=== PATIENT | female | born 1995 | race Caucasian/White ===

== ENCOUNTER 2024-07-21 08:25 | Outpatient (CLI) | payer OTHER, SELFPAY ==
[2024-07-21 12:03] LABS: Chlamydia DNA Amplified* NOT DETECTED (No Detected); GC DNA Amplified* NOT DETECTED (No Detected)
== END 2024-07-21 08:26 | disposition home or self-care (01) ==
PROVIDERS: Visit Provider Midwife
DX: Z34.91 Encounter for supervision of normal pregnancy, unspecified, first trimester (principal); Z3A.08 8 weeks gestation of pregnancy
CPT/HCPCS: 76817; 86592; 86703; 86704; 86706; 86762; 86787; 86803; 86850; 86900; 86901; 87086; 87340; 87491; 87591

== ENCOUNTER 2024-10-13 08:14 | Outpatient (CLI) | payer OTHER, SELFPAY ==
--- NOTE | 2024-10-13 08:15 | CRLHL7_ITS ---
For Patients: As a result of the Century Cures Act, medical imaging exams and procedure reports are released immediately into your electronic medical record. You may view this report before your referring provider. If you have questions, please contact your health care provider. INDICATION: Evaluate anatomy. COMPARISON: 07/21/2024 TECHNIQUE: Real time dickinson scale imaging of the fetus was performed as well as color Doppler analysis of the umbilical vessels. FINDINGS: Sonographic imaging demonstrates a single living intrauterine gestation. Fetus demonstrates a regular cardiac rate of 133 beats per minute. Fetus has a breech position. The placenta lies anteriorly without evidence of placenta previa. Edge of the placenta 5.1 cm from the internal cervical os. Amniotic fluid volume appears normal. Single deepest vertical pocket: 4.6 cm. The cervix is closed and measures 3.2 cm in length. The composite ultrasound gestational age is calculated at 20 weeks 3 days with an estimated sonographic due date of 02/27/2025. The estimated weight is 332 grams which lies at the 9th %. The following biometric measurements were obtained: Biparietal diameter: 4.7 cm/20 weeks 1 day 16th% Head circumference: 17.4 cm/19 weeks 6 days 6th% Abdominal circumference: 15.2 cm/20 weeks 3 days 24th% Femur length: 3.2 cm/19 weeks 6 days 9th% The HC/AC ratio measures: 1.15 range (1.07-1.25) On anatomic survey, there is a normal appearance of the cerebral ventricles, cavum septi pellucidi, cisterna magna and cerebellum. The nose, lips, and facial profile appear normal. The cervical, thoracic and lumbar spine are not well visualized. There is a normal four-chamber heart view and the left and right ventricular outflow tracts appear normal. The diaphragm and stomach appear normal. The kidneys and bladder also appear normal. There is a normal three-vessel cord and cord insertion site. The four extremities are not well visualized. IMPRESSION: Concordance of clinical and sonographic dating. Incomplete visualization of the spine, hands and feet. Remainder of the anatomic survey normal. Short-term follow-up recommended. Estimated weight 9th percentile. SD ratio 3.0. Dictated by Doron Ernst MD @ 10/13/2024 7:28:04 PM (Electronically Signed)
== END 2024-10-13 08:15 | disposition home or self-care (01) ==
LOC: US 08:14
PROVIDERS: Visit Provider Midwife
DX: Z34.92 Encounter for supervision of normal pregnancy, unspecified, second trimester (principal); O35.GXX0 Maternal care for other (suspected) fetal abnormality and damage, fetal upper extremities anomalies, not applicable or unspecified; O35.FXX0 Maternal care for other (suspected) fetal abnormality and damage, fetal musculoskeletal anomalies of trunk, not applicable or unspecified; O35.HXX0 Maternal care for other (suspected) fetal abnormality and damage, fetal lower extremities anomalies, not applicable or unspecified; Z3A.20 20 weeks gestation of pregnancy
CPT/HCPCS: 76805; 76820

== ENCOUNTER 2024-11-10 09:13 | Outpatient (CLI) | payer OTHER, SELFPAY ==
--- NOTE | 2024-11-10 09:15 | CRLHL7_ITS ---
For Patients: As a result of the Century Cures Act, medical imaging exams and procedure reports are released immediately into your electronic medical record. You may view this report before your referring provider. If you have questions, please contact your health care provider. OB ULTRASOUND FOLLOWUP LIMITED, 11/10/2024 CLINICAL HISTORY: Followup for missing anatomy and growth measurements. COMPARISON: 10/13/2024. TECHNIQUE: Transabdominal OB ultrasound. Real time dickinson scale imaging of the fetus was performed. FINDINGS: LMP: 05/19/2024. ERICH by LMP: 02/23/2025. GA: 24 weeks 0 days. Gestation: Single. Cervix: Not visualized. Positioning: Vertex. Amniotic Fluid: 4.3 cm. Placenta: Technique: Transabdominal. Placenta Position: Anterior. Dopplers: Heart Rate: 142 cm. Biometry: BPD: 6.1 cm, 24 weeks 6 days. 36.1% HC: 22.5 cm, 24 weeks 4 days. 14.7% AC: 20.2 cm, 24 weeks 6 days. 36.2% FL: 4.5 cm, 24 weeks 5 days. 28.5% EFW: 734.0 grams. 1 lb 10 oz. Age by this US: 24 weeks 5 days. ERICH by this US: 02/25/2025. Percentile by ERICH: 30.5% IMPRESSION: 1. Sonographic gestational age 24 weeks 5 days and sonographic due date 02/25/2025. Good correlation with dates. Normal interval growth. 2. Estimated weight 31st percentile. Abdominal circumference 36th percentile. 3 spine, hands and feet are normal. Doron Ernst M.D. Diagnostic Radiologist [email or web address] Transcribed: 10:46 am DW/Dictated by: Doron Ernst MD @ 11/10/2024 10:17:00 AM (Electronically Signed)
== END 2024-11-10 09:14 | disposition home or self-care (01) ==
LOC: US 09:14
PROVIDERS: Visit Provider Midwife
DX: O35.9XX0 Maternal care for (suspected) fetal abnormality and damage, unspecified, not applicable or unspecified (principal); Z3A.24 24 weeks gestation of pregnancy
CPT/HCPCS: 76816

== ENCOUNTER 2024-12-08 09:11 | Outpatient (CLI) | payer OTHER, SELFPAY | END 2024-12-08 09:12 | disposition home or self-care (01) | PROVIDERS: Visit Provider Midwife | DX: Z34.03 Encounter for supervision of normal first pregnancy, third trimester (principal); Z3A.29 29 weeks gestation of pregnancy | CPT/HCPCS: 86592; 86850; J2791 ==

== ENCOUNTER 2024-12-22 07:45 | Outpatient (CLI) | payer OTHER, SELFPAY | END 2024-12-22 07:46 | disposition home or self-care (01) | LOC: NFLDREF 12-23 23:49 | PROVIDERS: Visit Provider Midwife | DX: Z34.93 Encounter for supervision of normal pregnancy, unspecified, third trimester (principal); R73.09 Other abnormal glucose; Z3A.31 31 weeks gestation of pregnancy | CPT/HCPCS: 82951; 82952 ==

== ENCOUNTER 2025-01-08 12:08 | Outpatient (CLI) | payer OTHER, SELFPAY ==
--- NOTE | 2025-01-08 12:15 | CRLHL7_ITS ---
For Patients: As a result of the Century Cures Act, medical imaging exams and procedure reports are released immediately into your electronic medical record. You may view this report before your referring provider. If you have questions, please contact your health care provider. OB ULTRASOUND FOLLOWUP GROWTH 01/08/2025 CLINICAL HISTORY: Gestational diabetes mellitus. COMPARISON: 11/10/2024, 10/09/2024, 07/21/2024. TECHNIQUE: Real time dickinson scale imaging of the fetus was performed transabdominal. FINDINGS: ERICH by LMP: 02/23/2025. GA: 33 weeks 3 days. CERVIX: Not visualized. POSITIONING: Vertex. AMNIOTIC FLUID: 4.5 cm SDP. PLACENTA POSITION: Anterior. DOPPLERS: Heart Rate: 137 bpm. BIOMETRY: BPD: 8.4 CM, 33 weeks 5 days. 55.7% HC: 30.2 cm, 33 weeks 4 days. 17.9% AC: 28.8 cm, 32 weeks 6 days. 33.3% FL: 6.2 cm, 32 weeks 0 days. 10.0% FL/AC Ratio: 21.5% BARRAZA/AC Ratio: 1.05. EFW: 2040 grams, 4 lb 8 oz. Age by this US: 33 weeks 0 days. ERICH by this US: 02/26/2025. Percentile by ERICH: 22.7% IMPRESSION: 1. Sonographic gestational age 33 weeks 0 days and sonographic due date 02/26/2025. Good correlation with dates and normal interval growth. 2. Estimated weight 23rd percentile. Abdominal circumference 33rd percentile. 3. The bowel appears mildly hyperechoic on the sine clip, although this could be artifactual. Short-term followup or MFM consult could be considered. Doron Ernst M.D. Diagnostic Radiologist [email or web address] Transcribed: 1:39 pm DW/Dictated by: Doron Ernst MD @ 01/08/2025 1:14:00 PM (Electronically Signed)
== END 2025-01-08 12:09 | disposition home or self-care (01) ==
LOC: US 12:08
PROVIDERS: Visit Provider Advanced Practice Midwife
DX: O24.419 Gestational diabetes mellitus in pregnancy, unspecified control (principal); Z3A.33 33 weeks gestation of pregnancy
CPT/HCPCS: 76816

== ENCOUNTER 2025-01-16 15:56 | Outpatient (CLI) | payer OTHER, SELFPAY ==
--- NOTE | 2025-01-16 16:00 | CRLHL7_ITS ---
For Patients: As a result of the Cures Act, medical imaging exams and procedure reports are released immediately into your electronic medical record. You may view this report before your referring provider. If you have questions, please contact your health care provider. OB ULTRASOUND LIMITED FOLLOW-UP ERICH by LMP: 02/23/2025. GA: 34 w, 4 d. Single. Comparison: 01/08/2025, 11/10/2024, 10/13/2024. INDICATION: Follow-up echogenic bowel finding on previous ultrasound. TECHNIQUE: Real time dickinson scale imaging of the fetus was performed. CERVIX: Not visualized. POSITIONING: Vertex. AMNIOTIC FLUID: 5.7 cm SDP (N: greater than 2 x 1 cm) PLACENTA: Technique: Transabdominal. PLACENTA POSITION: Anterior. DOPPLER: heart rate: 137 bpm. IMPRESSION: The echotexture of the bowel loops appears similar to the prior study. Normal bladder, stomach and kidneys. Doron Ernst M.D. Diagnostic Radiologist [email or web address] FRANCA/Dictated by: Doron Ernst MD @ 01/16/2025 7:00:00 PM (Electronically Signed)
== END 2025-01-16 15:57 | disposition home or self-care (01) ==
LOC: US 15:57
PROVIDERS: Visit Provider Advanced Practice Midwife
DX: Z34.93 Encounter for supervision of normal pregnancy, unspecified, third trimester (principal); Z3A.34 34 weeks gestation of pregnancy
CPT/HCPCS: 76816

== ENCOUNTER 2025-01-29 13:42 | Outpatient (CLI) | payer OTHER, SELFPAY ==
[2025-01-30 13:11] LABS: Strep B DNA Probe Negative (Negative)
[2025-01-30 13:12] LABS: Strep B Susceptibility Needed? No
== END 2025-01-29 13:43 | disposition home or self-care (01) ==
LOC: NFLDREF 13:42
PROVIDERS: Visit Provider Advanced Practice Midwife
DX: Z34.93 Encounter for supervision of normal pregnancy, unspecified, third trimester (principal); Z3A.36 36 weeks gestation of pregnancy
CPT/HCPCS: 87081; 87653

== ENCOUNTER 2025-02-27 09:57 | Outpatient (CLI) | payer OTHER, SELFPAY ==
--- NOTE | 2025-02-27 10:00 | CRLHL7_ITS ---
For Patients: As a result of the Cures Act, medical imaging exams and procedure reports are released immediately into your electronic medical record. You may view this report before your referring provider. If you have questions, please contact your health care provider. OBSTETRICAL ULTRASOUND LIMITED, 02/27/2025 INDICATION: Post dates. NEENA check. CLINICAL HISTORY: ERICH by LMP: 02/23/2025 Gestational Age: 40 weeks 4 days COMPARISON: 01/16/2025, 01/08/2025, 11/10/2024, 10/13/2024 TECHNIQUE: Real-time dickinson-scale transabdominal obstetrical ultrasound. FINDINGS: Fetus: Single Cervix: Not visualized positioning: Vertex Amniotic Fluid: NEENA: 9.4 cm 4.2 cm SDP Placenta technique: Transabdominal Placenta position: Anterior heart rate: 137 bpm IMPRESSION: Amniotic fluid single deepest pocket 4.2 cm. NEENA 9.4 cm. DORON SANTO M.D. Diagnostic Radiologist [email or web address] Transcribed: 11:[address]/Dictated by: Doron Santo MD @ 02/27/2025 10:30:00 AM (Electronically Signed)
== END 2025-02-27 09:58 | disposition home or self-care (01) ==
LOC: US 09:57
PROVIDERS: Visit Provider Midwife
DX: O48.0 Post-term pregnancy (principal); Z3A.40 40 weeks gestation of pregnancy
CPT/HCPCS: 76815

== ENCOUNTER 2025-03-01 07:37 | Inpatient (IN) | payer OTHER, SELFPAY ==
[2025-03-01] VITALS (27 sets, daily range): BP systolic 93–149; BP diastolic 56–99; PULSE 63–91; RESP 16–20; TEMP 36–37.1; O2SAT 96–100; BMI 27.9
[2025-03-01] MEDS: LACTATED RINGERS 1000 ML 1,000 ML 125 ML IV ×2 (08:39→18:40)
[2025-03-01] MEDS: OXYTOCIN 30 unit/500 ML in NS 30 UNIT/500 ML BAG IVPB (08:41)
[2025-03-01 08:43] LABS: Basophils Absolute Auto 0.02 K/uL (0.00-0.30); Basophils Percent Auto 0.2 % (0.0-3.0); Eosinophils Absolute Auto 0.02 K/uL (0.00-0.50); Eosinophils Percent Auto 0.2 % (0.0-7.0); Hematocrit 36.1 % (33.0-51.0); Hemoglobin* 11.8 gm/dL (12.0-16.0); Immature Granulocytes Abs Auto 0.01 K/uL (0.00-0.30); Immature Granulocytes Pct Auto 0.1 %; Lymphocytes Percent Auto 15.1 % (20-44); Mean Corpuscular HGB Conc 33 gm/dL (32-36); Mean Corpuscular Hemoglobin 31 pg (26-34); Mean Corpuscular Volume 94 fL (80-100); Monocytes Percent Auto 9.3 % (0.0-11.0); Neutrophils Percent Auto 75.1 % (42.0-72.0); Platelet Count* 139 K/uL (140-440); Red Blood Count 3.86 m/uL (4.00-5.20); White Blood Count* 8.32 K/uL (4.50-11.00)
[2025-03-01 08:47] LABS: Slide Review Reflex No
--- NOTE | 2025-03-01 10:29 | P.LDBA_ITS ---
Subjective History of Present Illness Time Seen by Provider: 08:00 Date Seen: 03/01/25 Narrative: Patient is being admitted to Labor and Delivery for induction of labor for GDM A1. She is a 29 year old at 40.6 weeks gestation. Her full history and physical was dictated by Олег Belcher CNM on 02/05/25. Please see this for details. Specific Issues/Plans G 1P0 Partner:?Den. Warren gender. H&P completed by DMITRY Tan on 02/05/2025 #Gestational diabetes Nutrition consult: completed 12/28 Switched to BID testing, fasting and rotating 1 postprandial 4/7 Weekly testing starting at 40 weeks? Growth US every 4 weeks starting at 32 weeks 32 weeks: EFW 22%ile 36 weeks: Declines unless concerns arise Delivery recommended 39 0/7-40 6/7 weeks: IOL at 40 6/7 per patient request # Hx of frequent fainting d/t sensitive vagal nerve # O- Will check for records of Den's blood type--Den's blood type is AB+ Rhogam recommended at 28wks: given 12/08/24 Rhogam recommended pp #Possible echogenic bowel on growth at 32 weeks. Declines M referral/level 2. # Exposed to parvovirus in January Declines labs at this time 02/05/2025 Ultrasounds: 1st trimester (07/21/24): IMPRESSION: Normal first trimester OB ultrasound exam. Gestational age calculated at 8 weeks 5 days with a sonographic due date of 02/25/2025. Anatomy scan (10/13/24): IMPRESSION: Concordance of clinical and sonographic dating. Incomplete visualization of the spine, hands and feet. Remainder of the anatomic survey normal. Short-term follow-up recommended. Estimated weight 9th percentile. SD ratio 3.0. Others: Growth US (11/10/2024): IMPRESSION: 1. Sonographic gestational age 24 weeks 5 days and sonographic due date 02/25/2025. Good correlation with dates. Normal interval growth. 2. Estimated weight 31st percentile. Abdominal circumference 36th percentile. 3 spine, hands and feet are normal. Growth US (01/08/2025): IMPRESSION: 1. Sonographic gestational age 33 weeks 0 days and sonographic due date 02/26/2025. Good correlation with dates and normal interval growth. 2. Estimated weight 23rd percentile. Abdominal circumference 33rd percentile. 3. The bowel appears mildly hyperechoic on the sine clip, although this could be artifactual. Short-term followup or MFM consult could be considered. Follow-up (01/16/2025): IMPRESSION: The echotexture of the bowel loops appears similar to the prior study. Normal bladder, stomach and kidneys. NEENA US (02/27/2025): IMPRESSION: Amniotic fluid single deepest pocket 4.2 cm. NEENA 9.4 cm. 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 at 40.6 weeks gestation?? GBS negative? Patient is coping well with challenges of labor.?? Labor type: Induced Early labor? Category 1 FHR pattern.? complicated by: GDM A1, Hx of frequent fainting d/t sensitive vagal nerve, Rh negative blood type, Possible echogenic bowel on growth at 32 weeks, possible exposure to Parvovirus during Plan:?? * ?Admit to L & D? * IV access: SL * Monitoring per policy: continuous ? * Candidate for analgesia of choice.? Planning unmedicated for pain management * Desires waterbirth.? Consent signed and Hep C negative * Reviewed risks and benefits of IOL with Cook balloon, Pitocin vs Cytotec/Cervidil. Cervical ripening is not indicated, IV Pitocin per protocol with possible AROM later today. * Patient encouraged to reposition and ambulate to promote physiologic labor and . * Anticipate ? Delivery/Labor/Induction Plan Plan: induction Induction method: per pitocin protocol OB Exam Physical Exam Vital signs: Temp Pulse Resp BP Pulse Ox 98.4 F 83 16 121/83 98 03/01/25 08:13 03/01/25 09:33 03/01/25 08:13 03/01/25 09:33 03/01/25 08:12 Narrative: Vitals Reviewed Constitutional:? Alert and oriented x3 HEENT:? Normocephalic, atraumatic Neck:? Supple Lungs:? Clear to auscultation bilaterally Heart:? Regular rate and rhythm, no murmur, rub or gallop Abdomen:? Soft, nontender, and gravid. Vertex by Jani's, confirmed with cervi nancy exam. Extremities:? No edema or erythema Cervix: deferred at this time NST: 130 bpm/moderate variability/+accelerations/-decelerations/irregular contractions Detailed Labor and Delivery Exam Patient Gravid: yes
--- NOTE | 2025-03-01 11:27 | PM.OBPNL ---
Subjective Date Seen: 03/01/25 Narrative: ?Raquel is coping well with labor pain/contractions. ?Den is with her for support. ?She is using breathing and hip squeezes for comfort and pain management,. planning to get into the waterbirth tub soon. ? Objective Exam: VSS, afebrile General Appearance:? Calm, cooperative. ?No acute distress. ? Psychiatric Exam: Alert and oriented, appropriate affect Abdomen: Gravid Ctx: ?Q 1.5-2 min apart. ? ? ?Strong FHTs: ?Baseline: 120. ? ? Variability: moderate. ?Accels: +. ? ?Decels: ?variable. SVE: /0 Membranes: Intact ?bulging Vital Signs: Last Vital Signs Temp 98.4 F 03/01/25 08:13 Pulse 91 03/01/25 10:42 Resp 16 03/01/25 08:13 BP 114/69 03/01/25 10:42 Pulse Ox 100 03/01/25 10:31 Plan Plan: Assessment:?? at 40.6 weeks gestation?? GBS negative Patient is coping well with challenges of labor.?? Labor type: Induced, Active labor? Category 2 FHR pattern.? complicated by: GDM A1, Rh negative, hx of fainting spells Labor complicated by: nothing Plan:?? Continue with routine intrapartum cares as ordered.?? Patient encouraged to move and change positions to promote physiologic labor and .?? Nonpharmacologic comfort measures per patient preference. Candidate for analgesia of choice if desired. Patient planning waterbirth Anticipate progress to NVD. ?
[2025-03-01] MEDS: INSULIN ASPART 100 UNIT/ML SUBCUT ×2 (15:18→17:32)
--- NOTE | 2025-03-01 17:26 | PM.OBPNL ---
Subjective Time Seen by Provider: 17:00 Date Seen: 03/01/25 Narrative: Raquel has been pushing for 4+ hours in the waterbirth tub and is getting fatigued. She has pushed in multiple positions including hands and knees, squatting, lunging both right and left and now on her back. She has been pushing adequately and has been coached with pushing over the last 2 hours. She has been asking how much longer she will need to push for the last 30 minutes. She has been making good effort with pushing but head is not descending and there is caput. Recommended the OB provider come evaluate for vacuum or section at this time. She is agreeable to this plan. She has received 1 unit of insulin for a blood sugar of 127, earlier she had ablood sugar of 122 which was not treated as she had eaten some honey approximately 30 minutes prior to the sample being taken. Objective Exam: VSS, afebrile General Appearance:? Calm, cooperative. ?No acute distress. ? Psychiatric Exam: Alert and oriented, appropriate affect Abdomen: Gravid Ctx: ?Q 1.5-3 min apart. ? ? ?Strong FHTs: ?Baseline: 125. ? ? Variability: periods of minimal then moderate. ?Accels: -. ? ?Decels: ?variables with contractions. SVE: 10/100/0 Membranes: ?AROM clear Vital Signs: Last Vital Signs Temp 98.3 F 03/01/25 16:34 Pulse 76 03/01/25 16:33 Resp 20 03/01/25 16:33 BP 121/75 03/01/25 16:33 Pulse Ox 100 03/01/25 10:31 Contractions Pitocin Rate (mU/min): 0 Plan Plan: Assessment:?? at 40.6 weeks gestation?? GBS negative Patient is starting to not cope well with challenges of labor.?? Labor type: Induced, Active labor? Category 2 FHR pattern.? complicated by: GDM A1, hx of fainting spells, Rh negative blood type Labor complicated by: prolonged 2nd stage without decent? Plan:?? OB provider to evaluate Plan of care per their assessment ?
--- NOTE | 2025-03-01 17:33 | PM.OBCN1 ---
OB - CN: HPI Date of Consult Time Seen by Provider: 17:33 Date Seen: 03/01/25 Patient: [facility] Patient Consult date: 03/01/25 Requesting Physician: Shelton Cross CNM Primary Care Provider: Not a Local Provider Consult Narrative Reason for consult: arrest of labor (Arrest of descent) Narrative: Raquel is a 29 year old G 1 P 0 at 40 and 6/7 weeks gestation that was admitted to the Center on 03/01/25 for an induction of labor for diet-controlled gestational diabetes. She received Pitocin and had spontaneous rupture of membranes. She was hoping for a water and was noted to be completely dilated approximately noon. She started pushing at about 12:45 p.m. I was notified that the patient left the water tub and was noted to possibly be an occiput posterior position with arrest of descent at approximately +2 station per Lisbeth Cross. I was asked to consult for possible vacuum assisted vaginal delivery or section. Her is complicated by diet-controlled gestational diabetes. She has received 1 dose of subcu regular insulin 1 unit just received a 2nd dose of 2 units regular insulin subQ both for greater than 120. The patient is extremely uncomfortable with contractions and stating that she does not feel that she can push anymore and desires a delivery. History of Present care: good care Ultrasounds: normal 1st trimester US, normal mid trimester US and abnormal US findings Abnormal ultrasound findings: Echogenic bowel at approximately 32 weeks. Seen again at 33 weeks. Estimated weight 23% at 33 weeks gestation. Amniotic fluid level normal with reactive NST 02/27/2025 complications: gestational diabetes History History 1 Elective abortions Para 0 Spontaneous abortions Hx # Term Pregnancies Ectopic pregnancies Hx # Pregnancies Multiple births Number of Living Children 0 Labs Blood type: 0 (-) negative GBS status: negative OB Labs: Lab Assessment Start: 03/01/25 07:38 Freq: ONCE Status: Complete Protocol: PC.OBGBS Activity Type Activity Date Activity User E-sign Co-sign Detail Recorded Client Recorded Date Recorded By Document 03/01/25 07:58 JEN No Response 03/01/25 08:08 JEN 03/01/25 07:58 Lab Assessment GBS Status negative GBS Additional Criteria None No Treatment Needed OK Are Labs Available Yes Maternal Blood Type O Maternal RH Factor Negative Evaluate Maternal Rubella Immune Status Immune Hepatitis B Surface Antigen Negative Maternal HIV Status Negative Maternal Syphillis (RPR) Status Negative [facility]SH [facility] Medical History (Updated 03/01/25 @ 17:46 by Cally Lay MD) Gestational diabetes ?O24.419 - Gestational diabetes mellitus in , unspecified control (ICD-10) Fainting episodes ?R55 - Syncope and collapse (ICD-10) Surgical History (Updated 03/01/25 @ 17:46 by Cally Lay MD) Status post primary low transverse section (03/01/25) ?Z98.891 - History of uterine scar from previous surgery (ICD-10) [place] teeth extracted ?K08.409 - Partial loss of teeth, unspecified cause, unspecified class (ICD-10) Family History (Updated 07/21/24 @ 08:31 by Airam Pardo CNM) Mother Fainting Social History What is your current living situation?: I presently have a place to live Problems where you live: no known problems In the past 12 months, utilities in danger of being shut off: no In past 12 months, lack of transportation kept you from medical appts, meetings, work, or getting things needed for daily living: no In the past 12 mos, have been you worried that your food would run out before you had money to buy more?: never true In the past 12 mos, the food you bought just didn't last and you didn't have money to buy more?: never true Smoking Status: Never smoker How often does anyone, including family, friends and others, physically hurt you: never How often does anyone, including family, friends and others, insult or talk down to you: never How often does anyone, including family, friends and others, threaten you with harm: never How often does anyone, including family, friends and others, scream or curse at you: never Meds Home Medications and Allergies Home Medications ?Medication ?Instructions ?Recorded ?Confirmed ?Type ascorbic acid (vitamin C) 500 mg 500 mg PO QDAY 07/21/24 03/01/25 History capsule choline 500 mg tablet 500 mg PO QDAY 07/21/24 03/01/25 History omega-3 fatty acids 1,000 mg 1,000 mg PO QDAY 07/21/24 03/01/25 History capsule vit 168-iron 27 mg-folic 1 cap PO QDAY 07/21/24 03/01/25 History acid 800 mcg-omega3 235 mg capsule (One-A-Day -1) aspirin 81 mg chewable tablet 81 mg PO QDAY 09/14/24 03/01/25 History Blood Glucose Meter #1 ea 12/22/24 02/27/25 Rx Test Strips #200 ea 12/22/24 02/27/25 Rx lancets #200 ea 12/22/24 02/27/25 Rx Allergies Allergy/AdvReac Type Severity Reaction Status Date / Time amoxicillin Allergy Mild Rash Verified 03/01/25 07:56 OB - H&P: Exam Physical Exam: Vital signs: Temp Pulse Resp BP Pulse Ox 98.3 F 76 20 121/75 100 03/01/25 16:34 03/01/25 16:33 03/01/25 16:33 03/01/25 16:03/01/25 10:31 Narrative: General: , young woman in significant distress with pain during contractions. Vital Signs: Included in her electronic medical record. EFM: 140 bpm, minimal variability, variable decelerations with every contraction to the 90's. Category 2. TOCO: Q2-3 minutes. SVE: Complete: Vtx at approximately zero station, caput at 2-3+ station, possible OT presentation. Sutures not palpable due to caput. ears not palpable due to patient intolerance of exam. Extremities: no pain/edema OB - Results Labs Labs: Short CBC 03/01/25 Range/Units 08:36 WBC 8.32 (4.50-11.00) K/uL Hgb 11.8 L (12.0-16.0) gm/dL Hct 36.1 (33.0-51.0) % Plt Count 139 L (140-440) K/uL OB - CN: A/P Assessment and Plan (1) Encounter for induction of labor: Status: Acute (2) Gestational diabetes: Status: Acute (3) Arrest of descent, delivered, current hospitalization: Status: Acute Assessment and Plan: 1. Recommended primary low transverse section. 2. Consent reviewed and signed. 3. Blood type O negative. 4. GBS negative. 5. Admission hgb 11.8. (4) Status post primary low transverse section: Status: Acute
[2025-03-01] MEDS: AZITHROMYCIN 500 MG in 0.9 % SODIUM CHLORIDE 250 ml 250 ML 255 MG IVPB (17:41)
[2025-03-01] MEDS: CEFAZOLIN 1 GM inj 2 GM IVP (18:20)
--- NOTE | 2025-03-01 18:52 | SUR.OPER ---
SURGEON DECLINES SENDING PLACENTA
--- NOTE | 2025-03-01 19:05 | P.ANES_ITS ---
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
--- NOTE | 2025-03-01 19:05 | W.PM.NB ---
Nerve Block Nerve Block Time Seen by Provider: 19:38 Date Seen: 03/01/25 Type of block requested by surgeon for post-operative analgesia: TAP Side: bilateral Time out performed: Yes Verification of patient name: Yes Verification of date of : Yes Site marking: site marked Name of person performing procedure: Brijesh Cornejo Continuous monitoring Was continuous monitoring of O2 sat, B/P, nuclear monitoring technician, recorded every 15 minutes?: Yes Procedure Checklist: sterile prep, needles and gloves Ultrasound guided. Images saved: Yes Medications given in 5ml increments after negative aspiration: Marcaine %: 0.25 mL: 30 Needle gauge: 20 and Exparel mL: 10 Needle gauge: 20 Patient tolerated procedure well: Yes Additional comments: Injected in 5ml increments after negative aspiration Block Charges Block Charge (with Pro Fee): TAP Bilateral Use of Ultrasound Machine for Block: Yes- US Guidance/pain block
--- NOTE | 2025-03-01 19:05 | W.ANESCHARGE ---
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
[2025-03-01] MEDS: KETOROLAC 30 MG/ML inj IVP (19:40)
--- NOTE | 2025-03-01 20:08 | P.PCN_ITS ---
Procedure Note Time Seen by Provider: 20:08 Date Seen: 03/01/25 Date of procedure: 03/01/25 Will [facility] bill your pro fee for this procedure?: Yes Procedure: Preoperative diagnosis: 29 year-old 1 para 0 at 40 and 6/7 weeks with arrest of descent after induction of labor for GDM A1 Postoperative diagnosis: Same, ROT presentation, hemorrhage due to uterine atony. Procedure: Primary low-transverse section Anesthesia: Spinal, TAPS block Surgeon: Cally Lay MD [employer]: N/A Quantitative blood loss: 1053 mL IV Fluid: 1900 mL UOP: 200 mL, blood tinged at the end the procedure Specimen: None Drain(s): Dumont to gravity, Bakri 290 mL saline so to gravity Indications: See consultation note Findings: A live female was delivered from the ROT position at 6:40 p.m.. Apgars were 8 at 1 min and 9 at 5 min, respectively. Infant weight: Pending. Nuchal cord(s): Yes: Double loose nuchal cord reduced at the surgical site prior to delivery of the infant's shoulders. The placenta was delivered spontaneously and complete at 6:43 p.m. Amniotic fluid: Clear. Normal uterus, fallopian tubes and ovaries were noted. Other findings: Significant uterine atony after delivery of the placenta treated with 40 units Pitocin in 1 L IV fluid wide open, 1 g TXA IV, 0.2 mg Methergine IM, Bakri balloon placement with 290 mL saline. Procedure: Raquel was taken to the OR where spinal anesthetic was found be adequate. A Dumont catheter was placed. The patient was then placed in the dorsal supine position with a leftward tilt. She was then prepped and draped in a normal sterile manner. A Pfannenstiel skin incision was made and carried through sharply to the underlying layer of fascia. Fascia was incised in the midline and this incision carried laterally with Gilbert scissors. The superior aspect of fascial incision was grasped with Lindsey clamps, tented up, and the rectus muscles dissected off with a combination of blunt and sharp dissection. The inferior aspect of the fascial incision was grasped with Lindsey clamps, tented up and again the rectus muscles dissected off with a combination of blunt and sharp dissection. The rectus muscles were in the midline. The peritoneum was entered bluntly. This opening was extended bluntly. An Laurent-O self-retaining retractor was placed. A bladder flap was not created. Uterus was incised in a low transverse manner in the midline. This incision carried laterally with blunt pressure on the inferior and superior aspects of the uterine incision. The amniotic sac was ruptured. The infant's head and body was delivered atraumatically. The umbilical cord was clamped and cut after a 32nd delay. The infant was shown to the patient and her support person and then handed to waiting pediatric and nursing staff. The placenta was delivered spontaneously. The uterus was cleared of clots and debris. There was an extension of the uterine incision at the right apex inferiorly toward the cervix. This extension was repaired using 0 Vicryl and running locked manner. Four additional figure of 8 sutures were placed over this extension to obtain hemostasis. Two of the sutures were 0 Vicryl and the other two were 2-0 health information coder tank. Uterine atony was treated with the above medications without alleviation of atony. The decision was then made to place a Bakri balloon. This was placed through the uterine incision into the fundus and filled with 290 mL of saline. The uterine incision was re-approximated with the uterus in vivo. The 1st layer using 0-Vicryl in a running, locked manner. The 2nd layer using 0-Monocryl in a running, vertical, imbricating layer. Additional sutures needed for hemostasis: Yes, 2 additional figure of 8 sutures using 2-0 chromic 1 placed at each apex of the uterine incision to obtain hemostasis. Mayra was then applied to the uterine incision. Excellent hemostasis was verified. The Luarent retractor was removed. The rectus muscles were not reapproximated. The rectus muscles were then closely inspected to verify hemostasis. Hemostasis was obtained with bipolar cautery. The fascia was then re-approximated using 0-Maxon loop in a running manner. The subcutaneous tissue was then irrigated with saline and hemostasis obtained with bipolar cautery. The subcutaneous tissue was re-approximated using 3-0 plain gut interrupted sutures. The skin was reapproximated using 4-0 Monocryl in a running subcuticular manner. Exofin skin adhesive and a Mepilex dressing were applied. The patient tolerated this procedure well. Sponge, lap and instrument counts were correct x2 active to the procedure. Patient was taken to the recovery area in stable condition. The patient received 2g of IV Ancef and 500mg of IV Azithromycin prior to skin incision. Anesthesia: spinal and other (TAPS block) Surgeon: Cally Lay Estimated blood loss (mL): 1,053 IV fluids (mL): 1,900 Urine output (mL): 200 Pathology: none sent Condition: stable Disposition: floor
[2025-03-01] MEDS: ACETAMINOPHEN 500 MG TABLET 1000 MG PO (23:05)
[2025-03-02 01:00] VITALS: BP 115/73; PULSE 78; RESP 16; TEMP 37.4; O2SAT 95
[2025-03-02] MEDS: KETOROLAC 30 MG/ML inj IVP ×4 (02:05→19:59)
[2025-03-02] MEDS: OXYCODONE 5 MG TABLET PO ×5 (04:31→20:57)
[2025-03-02 06:30] LABS: Hemoglobin* 10.2 gm/dL (12.0-16.0)
[2025-03-02 07:56] VITALS: BP 111/74; PULSE 74; RESP 28; TEMP 36.8; O2SAT 95
--- NOTE | 2025-03-02 08:09 | PM.OBPNVD1 ---
OB - PN:Subj Subjective Date Seen: 03/02/25 Patient comments OB post-: no complaints, pain well controlled, tolerating diet and flatus present Francisco status: and doing well Narrative: Raquel is tired and sore but otherwise feels well.? Her pain is well controlled with current medications.? She has no new complaints.?Her urinary catheter is still in place but plan to remove it later today. Urinary output is adequate.? Has a good appetite, is tolerating a general diet, is passing flatus, and has not had a bowel movement.?Her Bakri was removed this morning by the RN and bleeding has been minimal since removal. She is ambulating well.?She is working on latching baby and was encouraged to seek help from nursing staff and . OB - PN: Obj Exam Physical Exam: Vital signs: Temp Pulse Resp BP Pulse Ox O2 Del Method 98.3 F 74 28 H 111/74 95 Room Air 03/02/25 07:56 03/02/25 07:56 03/02/25 07:56 03/02/25 07:56 03/02/25 07:56 03/02/25 07:56 Narrative: GENERAL APPEARANCE:? normal affect, alert, no distress? MOOD:? appropriate? CHEST:? clear to auscultation and percussion? HEART:? regular rate and rhythm? ABDOMEN:? soft, non-tender the uterine fundus is U/1 and is appropriate for the stage of recovery. Incision dressing is clean, dry and intact.? EXTREMITIES:? normal and no edema? OB - PN: Obj Data Labs Labs: Laboratory Results - last 24 hr 03/01/25 03/02/25 08:36 06:10 WBC 8.32 RBC 3.86 L Hgb 11.8 L 10.2 L Hct 36.1 MCV 94 MCH 31 MCHC 33 RDW Coeff of Micki 13.0 Plt Count 139 L Neut % (Auto) 75.1 H Lymph % (Auto) 15.1 L [place] % (Auto) 9.3 Eos % (Auto) 0.2 Baso % (Auto) 0.2 Neut # (Auto) 6.20 Lymph # (Auto) 1.30 [place] # (Auto) 0.80 Eos # (Auto) 0.02 Baso # (Auto) 0.02 Abs Immat Gran (auto) 0.01 Imm/Tot Granulo (auto) 0.1 Blood Type O Negative Antibody Screen POSITIVE Antibody Identification Anti-D Screen Negative OB - PN: A/P Delivery Assessment and Plan (1) Gestational diabetes: Status: Acute (2) Status post primary low transverse section: Status: Acute (3) Lactating mother: Status: Acute (4) hemorrhage: Problem details: Uterine atony and R uterine apex extension toward the cervix. QBL 1053mL Status: Acute Plan day: 1 Plan: routine care Comments: Anticipate discharge home tomorrow or the following day per patient preference. Encourage 2hr GTT tomorrow before discharge.
[2025-03-02] MEDS: DOCUSATE SODIUM 100 MG CAPSULE PO (10:01)
[2025-03-02] MEDS: ACETAMINOPHEN 500 MG TABLET 1000 MG PO ×3 (10:52→23:24)
[2025-03-02 11:36] VITALS: BP 102/68; PULSE 84; RESP 16; TEMP 36.7; O2SAT 96
[2025-03-02 15:02] LABS: Rapid Plasma Reagin (RPR) Non Reactive (Non Reactive)
[2025-03-02 16:20] VITALS: BP 110/75; PULSE 88; TEMP 36.8; O2SAT 96
[2025-03-02 20:00] VITALS: BP 119/77; PULSE 85; RESP 16; TEMP 36.8; O2SAT 97
[2025-03-03] MEDS: KETOROLAC 30 MG/ML inj IVP (01:58)
[2025-03-03 02:25] VITALS: BP 117/78; PULSE 81; RESP 16; TEMP 36.6; O2SAT 96
[2025-03-03] MEDS: ACETAMINOPHEN 500 MG TABLET 1000 MG PO ×3 (05:36→23:42)
[2025-03-03] MEDS: OXYCODONE 5 MG TABLET PO ×4 (06:35→23:42)
[2025-03-03 07:13] LABS: Glucose Fasting 84 mg/dl (70-95)
--- NOTE | 2025-03-03 07:52 | P.OBPN_ITS ---
OB - PN:Subj Subjective Date Seen: 03/03/25 Narrative: Raquel is a 29 y.o. G 1 P 1 who was admitted to [facility] for induction for GDM. ?She had a that was complicated by PPH of 1053. The patient feels well. ?The pain is well controlled with current medications. ?She has no new comp laints. ?She is breast feeding and reports things are going well. the patient has done well.? Vitals have been stable.? She has remained afebrile.? Has a good appetite, is tolerating a general diet. ?She is voiding without difficulty.? She is passing gas and has not had a bowel movement.? She is ambulating and denies any dizziness.? Has small amount of rubra lochia. Problems: Mild anemia (hgb 10.2) Elevated BP without diagnosis of HTN OB - PN: Obj Exam Physical Exam: Vital signs: Temp Pulse Resp BP Pulse Ox O2 Del Method 97.8 F 81 16 117/78 96 Room Air 03/03/25 02:25 03/03/25 02:25 03/03/25 02:25 03/03/25 02:25 03/03/25 02:25 03/03/25 02:25 Narrative: GENERAL APPEARANCE:? normal affect, alert, no distress MOOD:? appropriate CHEST:? clear to auscultation HEART:? regular rate and rhythm ABDOMEN:? soft, non-tender the uterine fundus is At Umbilicus, Midline and is appropriate for the stage of recovery. EXTREMITIES:? normal and no edema INCISION: Healing well, no surrounding erythema, abnormal induration or discharge OB - PN: Obj Data Labs Labs: Laboratory Results - last 24 hr 03/01/25 03/03/25 08:36 06:29 Glucose Tolerance RPR Screen Non Reactive Antibody Identification Anti-D Screen Negative OB - PN: A/P Delivery Assessment and Plan (1) care and examination immediately after delivery: Status: Acute (2) Gestational diabetes: Status: Acute (3) Status post primary low transverse section: Status: Acute (4) Lactating mother: Status: Acute (5) hemorrhage: Problem details: Uterine atony and R uterine apex extension toward the cervix. QBL 1053mL Status: Acute (6) Elevated blood pressure reading without diagnosis of hypertension: Problem details: Has not had two elevated BP's >4 hours apart Status: Acute Plan day: 1 Plan: routine care Comments: , may see if needed? Hgb 10.2. ? Elevated BP without diagnosis of HTN, will continue to monitor and draw labs if indicated GDM, 2 hour gct in progress Anticipate d/c home tomorrow
[2025-03-03 08:01] VITALS: BP 114/80; PULSE 92; RESP 16; TEMP 36.8; O2SAT 97
[2025-03-03 09:07] LABS: Glucose 2 Hour 177 mg/dl (70-155)
[2025-03-03] MEDS: IBUPROFEN 600 MG TABLET PO ×2 (09:21→16:25)
[2025-03-03] MEDS: DOCUSATE SODIUM 100 MG CAPSULE PO (12:28)
[2025-03-03 16:14] VITALS: BP 114/80; PULSE 89; RESP 16; TEMP 36.8; O2SAT 98
[2025-03-04 00:34] VITALS: BP 114/78; PULSE 87; RESP 16; TEMP 37.1; O2SAT 100
[2025-03-04] MEDS: OXYCODONE 5 MG TABLET PO ×2 (05:25→09:25)
[2025-03-04] MEDS: ACETAMINOPHEN 500 MG TABLET 1000 MG PO (05:25)
--- NOTE | 2025-03-04 07:26 | P.DS_ITS ---
DS: Providers Provider Date Seen: 03/04/25 Date of admission: 03/01/25 07:37 Primary care physician: Not a Local Provider Admitting Clinician: Lisbeth Cross CNM Consults: 03/01/25 17:25 Consult to Physician [CONS] Routine Comment: Consulting Provider: Cally Lay Has provider been notified: Yes Attending Physician on discharge: Lynn Belcher CNM DS: Diagnosis Discharge Diagnosis (1) Elevated blood pressure reading without diagnosis of hypertension: Status: Acute Problem details: Has not had two elevated BP's >4 hours apart (2) care and examination immediately after delivery: Status: Acute (3) Lactating mother: Status: Acute (4) hemorrhage: Status: Acute Problem details: Uterine atony and R uterine apex extension toward the cervix. QBL 1053mL (5) Status post primary low transverse section: Status: Acute Exam Narrative: Exam Narrative: GENERAL APPEARANCE:? normal affect, alert, no distress MOOD:? appropriate CHEST:? clear to auscultation HEART:? regular rate and rhythm ABDOMEN:? soft, non-tender the uterine fundus is At Umbilicus, Midline and is appropriate for the stage of recovery. EXTREMITIES:? normal and no edema INCISION: Healing well, no surrounding erythema, abnormal induration or discharge Const: Vital Signs, click to edit/add: Vital Signs - 24 hr 03/03/25 08:01 03/03/25 16:14 03/04/25 00:34 Temperature 98.2 F 98.3 F 98.8 F Pulse Rate [Pulse Oximeter] 92 89 87 Respiratory Rate 16 16 16 Blood Pressure [Ri ght Arm] 114/80 114/80 114/78 Pulse Oximetry 97 98 100 Oxygen Delivery Me thod Room Air Room Air Room Air Documenting provider has reviewed patient's vital signs: yes OB - DS: Summary Hospital Course Hospital Course: Raquel is a 29 y.o. G 1 P 1 who was admitted to [facility] for IOL for GDM. ?She had a section that was complicated by PPH of 1053. The patient feels well. ?The pain is well controlled with current medications. ?She has no new compla ints. ?She is breast feeding and reports things are going okay. She has worked on with staff over the last few days and feels they have a better plan. the patient has done well.? Vitals have been stable.? She has remained afebrile.? Has a good appetite, is tolerating a general diet. ?She is voiding without difficulty.? She is passing gas and has not had a bowel movement.? She is ambulating and denies any dizziness.? Has small amount of rubra lochia. Problems: none Discharge home with baby.? Follow up in 2 weeks and 6 weeks.? , may see if needed? Hgb 10.2. ? Elevated BP without diagnosis of HTN ? Failed 2 hour gct, will follow-up with primary care for pre-diabetes risk. Also discussed recommendation of hgbA1c in 1 year . For pain control of perineum, breast and pelvic pain, take 600 mg Ibuprofen every 6 hours as needed by mouth or 1000 mg acetaminophen (Tylenol) every 6 hours by mouth as needed. You can alternate these so you are taking something every 3 hours as needed. A heating pad can also be used for your abdomen or breasts. You may also take docusate sodium up to twice daily to soften your stools and help to prevent constipation. You may wean off of it when your stools return to normal.? Peripartum Data delivery method: Primary C/S; Labored Laceration description: None Procedures: Procedures Operation Date: 03/01/25 18:00 Actual Procedure Side Surgeon p Primary Low Transverse Section Cally Lay MD complications: none Infant Gender: Female Infant Discharge Plan: Home Status at Discharge Functional status at discharge: independent ambulation Overall status at discharge: patient is progressing back to baseline Time Spent with Patient Time attestation: Total time spent providing and/or coordinating discharge services: Time spent: Less than 30 minutes Discharge Plan Discharge Disposition: Home, Self-Care Date of Admission: 03/01/25 07:37 Attending Provider on Discharge: Lynn Belcher Consulting Providers: Cally Lay Primary Care Provider: Provider,Not a Local Condition: Stable Anticipated Discharge Date/Time: 03/04/25 12:00 Discharge Medications: New docusate sodium 100 mg Capsule 100 mg PO BID PRN (Reason: constipation) Qty: 90 0RF ibuprofen 600 mg Tablet 600 mg PO Q6H PRN (Reason: Pain) Qty: 60 0RF oxycodone 5 mg Tablet 5 - 10 mg PO Q4H PRN (Reason: Pain) Qty: 20 0RF acetaminophen 500 mg Tablet 1,000 mg PO Q6H PRN (Reason: Pain) Qty: 0 0RF Continued One-A-Day -1 27 mg iron- 800 mcg-235 mg capsule 1 cap PO QDAY choline 500 mg tablet 500 mg PO QDAY omega-3 fatty acids 1,000 mg capsule 1,000 mg PO QDAY ascorbic acid (vitamin C) 500 mg capsule 500 mg PO QDAY Discontinued aspirin 81 mg tablet,chewable 81 mg PO QDAY (DME) lancets Misc See Rx Instructions .MEDSUPPLY Qty: 200 3RF Rx Instructions: Test blood sugar 4 times daily. (DME) Test Strips Misc See Rx Instructions .MEDSUPPLY Qty: 200 3RF Rx Instructions: Test blood sugar 4 times daily. (DME) Blood Glucose Meter Misc See Rx Instructions .MEDSUPPLY Qty: 1 0RF Rx Instructions: As directed Discharge Orders: Discharge Order (Routine); Ordered 03/04/25 Ordered By: Lynn Belcher Patient Education: OB Over the Counter Medication Information, OB /Breast Feeding Additional Instructions: Discharge instructions were reviewed with the patient including signs and symptoms of infection and home going medications Lifting Restrictions: 20 pounds for 6 weeks No not submerge incision under water X 2 weeks? Nothing vaginally for 6 weeks: no tampons or intercourse Do not drive while taking narcotic pain medication(s) Off Work or School for 8 weeks 2-week visit: incision check, discuss feeding concerns, review control options and screen for anxiety/depression. 6-week visit for an annual exam. consultation services are available to all mothers and babies for the first year after delivery.? To make an appointment, please call [phone]. Activity Level: Activity as Tolerated and No strenuous activity Discharge Diet: Regular Follow Up App[facility]ments: [facility] Info Instructions
[2025-03-04 09:15] VITALS: BP 114/78; PULSE 87; RESP 16; TEMP 36.8; O2SAT 97
[2025-03-04] MEDS: IBUPROFEN 600 MG TABLET PO (09:25)
[2025-03-04] MEDS: DOCUSATE SODIUM 100 MG CAPSULE PO (09:25)
== END 2025-03-04 12:50 | disposition home or self-care (01) | DRG 787 ==
PROVIDERS: Obstetrics & Gynecology; Admitting Provider Advanced Practice Midwife; Visit Provider Advanced Practice Midwife
PROC: 10D00Z1 Extraction of Products of Conception, Low, Open Approach (ICD-10-PCS; CPT 59514; principal; 2025-03-01 18:00)
DX: O24.420 Gestational diabetes mellitus in childbirth, diet controlled (principal); D62 Acute posthemorrhagic anemia; O72.1 Other immediate postpartum hemorrhage; O32.4XX0 Maternal care for high head at term, not applicable or unspecified; O63.1 Prolonged second stage (of labor); O90.81 Anemia of the puerperium; R03.0 Elevated blood-pressure reading, without diagnosis of hypertension; G89.18 Other acute postprocedural pain; O48.0 Post-term pregnancy; O26.893 Other specified pregnancy related conditions, third trimester; Z67.41 Type O blood, Rh negative; Z3A.40 40 weeks gestation of pregnancy; Z37.0 Single live birth
CPT/HCPCS: 01961; 36415; 64488; 76942; 82947; 82950; 85018; 85025; 85461; 86592; 86850; 86870; 86880; 86900; 86901; 99140; A4314; A9270; J0456; J0665; J0666; J0690; J1100; J1885; J2210; J2371; J2405; J2590; J7050; J7120

== ENCOUNTER 2025-04-12 09:59 | Outpatient (CLI) | payer OTHER, SELFPAY ==
[2025-04-14 07:29] LABS: HPV Source Cervical
[2025-04-23 14:37] LABS: Pap Test Reviewed by Path Done
== END 2025-04-12 10:00 | disposition home or self-care (01) ==
PROVIDERS: Visit Provider Physician Assistant
DX: Z12.4 Encounter for screening for malignant neoplasm of cervix (principal); Z11.51 Encounter for screening for human papillomavirus (HPV)
CPT/HCPCS: 87624; 87625; 88141; 88142